=== PATIENT | male | born 1965 | race Caucasian/White ===

== ENCOUNTER 2016-08-02 22:58 | Emergency (ER) | payer MEDICARE, OTHER ==
--- NOTE | ~2016-08-02 | CR72 ---
[facility] A Service of [facility] RADIOLOGY TEXT RESULTS PATIENT: HUGO LEYVA LOCATION: [facility] : 61 UNIT #: [id number] AGE: [address]: Timothy Clifford MD SEX: M ORDER DR: [id number] [address] [address] [id number] E MR#: [id number] Acc #: [id number] NAME: HUGO LEYVA. : 1965 SEX: M STUDY DATE/TIME: 08/02/2016 21:57 UNIT: [facility] ROOM: STUDY DESCRIPTION: CR Chest Single View Portable Attending Physician: Timothy Clifford M.D. Ordering Physician: Timothy Clifford M.D. Primary Care Physician: No Primary Care Physician MEDICAL IMAGING REPORT This report is preliminary unless electronic signature is present EXAM Portable chest. DATE OF EXAM 08/02/2016 INDICATIONS Chest congestion for the past 2 hours. PROCEDURE Frontal view chest. COMPARISON 12/06/2009 FINDINGS Heart size within normal limits. Pulmonary vessels are stable. No dense consolidation. No pleural fluid or pneumothorax. IMPRESSION No active process. Dictated by... Michael Sanchez M.D. THIS IS AN ELECTRONICALLY VERIFIED REPORT Michael Sanchez M.D. at 08/05/2016 7:23 AM CHRISSY/rachel TD: 08/03/2016 21:34 JOB #: [id number] [facility] A Service of [facility] RADIOLOGY TEXT RESULTS PATIENT: HUGO LEYVA LOCATION: [facility] : 61 UNIT #: [id number] AGE: [address]: Timothy Clifford MD SEX: M ORDER DR: MEDICAL IMAGING REPORT COPY
--- NOTE | ~2016-08-02 | EKG ---
PATIENT: HUGO LEYVA UNIT #: [id number] Ventricular Rate: 78 BPM Atrial Rate: 78 BPM P-R Interval: 138 ms QRS Duration: 78 ms Q-T Interval: 354 ms QTC Calculation(Bezet): 403 ms P [place]: 65 degrees Calculated R [place]: 65 degrees Calculated T [place]: 54 degrees Diagnosis Line: Normal sinus rhythm Diagnosis Line: Normal ECG Diagnosis Line: When compared with ECG of 29-MAY-2015 13:16, Diagnosis Line: No significant change was found Diagnosis Line: Confirmed by ANAID MAJANO MD ([id number]) on 08/05/2016 Diagnosis Line: 7:26:09 AM INTERPRETING MD: MELECIO PORTER
--- NOTE | ~2016-08-02 | CT71 ---
[facility] A Service of [facility] RADIOLOGY TEXT RESULTS PATIENT: HUGO LEYVA LOCATION: [facility] : 61 UNIT #: [id number] AGE: [address]: Timothy Clifford MD SEX: M ORDER DR: [id number] [address] [place] [id number] [facility]. [place], [place] [address] [id number] E MR#: [id number] Acc #: [id number] NAME: HUGO LEYVA : 1965 SEX: M STUDY DATE/TIME: 08/02/2016 22:20 UNIT: [facility] ROOM: STUDY DESCRIPTION: CT Head Wo Contrast Attending Physician: Timothy Clifford M.D. Ordering Physician: Timothy Clifford M.D. Primary Care Physician: No Primary Care Physician MEDICAL IMAGING REPORT This report is preliminary unless electronic signature is present EXAM CT head, noncontrast 08/02/2016 HISTORY 51-year-old male in the ED complaining of headache, dizziness, blurred vision and extremity numbness beginning about 2 hours prior to arrival. TECHNIQUE CT examination of the head without IV contrast. This CT exam was performed with one or more of the following radiation dose reduction techniques: automatic control, adjustment of mA and/or kV according to patient size, and iterative reconstruction. FINDINGS No acute intracranial abnormality is identified. No evidence of intracranial hemorrhage, mass, mass effect, cerebral edema, hydrocephalus or additional abnormality. If there is ongoing clinical concern for acute ischemic insult, followup MRI examination of the brain is recommended. IMPRESSION Negative noncontrast head CT examination. Dictated by... Jose J Lance M.D. THIS IS AN ELECTRONICALLY VERIFIED REPORT Jose J Lance M.D. at 08/04/2016 12:04 AM DIANAW/rnr TD: 08/03/2016 22:12 [facility] A Service of [facility] RADIOLOGY TEXT RESULTS PATIENT: HUGO LEYVA LOCATION: [facility] : 61 UNIT #: [id number] AGE: [address]: Timothy Clifford MD SEX: M ORDER DR: JOB #: [id number] MEDICAL IMAGING REPORT COPY
[2016-08-02 21:57] LABS: URINE SOURCE CLEAN CATCH
[2016-08-02 22:06] LABS: URINE APPEARANCE CLEAR; URINE BILIRUBIN NEG (NEG); URINE BLOOD NEG (NEG); URINE COLOR YELLOW; URINE GLUCOSE NEG (NEG); URINE KETONE NEG (NEG); URINE LEUKOCYTE ESTERASE NEG (NEG); URINE NITRATE NEG (NEG); URINE PH 6.5 (5-8); URINE PROTEIN NEG (NEG); URINE SPECIFIC GRAVITY 1.008 (1.003-1.035); URINE UROBILINOGEN 0.2 MG/DL (NEG)
[2016-08-02 22:12] LABS: CULTURE INDICATED? NO
[2016-08-02 22:17] LABS: AMPHETAMINE NEG (NEG); BARBITURATES NEG (NEG); BENZODIAZEPINES NEG (NEG); COCAINE NEG (NEG); MARIJUANA NEG (NEG); OPIATES NEG (NEG); TRICYCLIC ANTIDEPRESSANTS NEG (NEG); U METHADONE NEG (NEG)
[2016-08-02 22:18] LABS: BASOPHIL# 0.1 X10e3 (0-0.3); EOSINOPHIL# 0.3 X10e3 (0-0.7); HEMOGLOBIN 15.4 gm/dL (13.0-16.0); LYMPHOCYTE% 34.2 % (17.0-45.0); MEAN CELL VOLUME 84.2 FL (83-96); MEAN CORPUSCULAR HEMOGLOBIN 28.8 PG (28-34); MEAN CORPUSCULAR HGB CONC 34.2 g/dL (30-36); MEAN PLATELET VOLUME 6.9 FL (6.5-11.5); MONOCYTE# 0.7 X10e3 (0-1.0); MONOCYTE% 5.9 % (3.0-12.0); NEUTROPHIL# 6.6 X10e3 (1.5-7.1); NEUTROPHIL% 55.9 % (40-75); PLATELET COUNT 244 X10e3 (140-420); RED BLOOD COUNT 5.35 X10e (3.90-5.60); RED CELL DISTRIBUTION WIDTH 14.2 % (11.0-15.5); WHITE BLOOD COUNT 11.7 X10e3 (4.0-10.5)
[2016-08-02 22:25] LABS: DIFF IND NO
[2016-08-02 22:35] LABS: PARTIAL THROMBOPLASTIN TIME 30.7 SECONDS (23.5-31.3); PROTHROMBIN TIME (PATIENT) 10.8 SECONDS (9.6-11.5)
[2016-08-02 22:41] LABS: ALBUMIN SERUM 4.2 g/dL (3.5-5.0); ALCOHOL BLOOD <5 mg/dL (0); ALKALINE PHOSPHATASE 50 U/L (32-92); ALT (SGPT) 19 U/L (10-40); AST (SGOT) 24 U/L (10-42); BILIRUBIN, DIRECT 0.1 mg/dL (0.0-0.2); BILIRUBIN,INDIRECT 0.5 mg/dL (0.0-0.9); BILIRUBIN,TOTAL 0.6 mg/dL (0.2-2.0); BLOOD UREA NITROGEN 7 mg/dL (9-23); BUN/CREATININE RATIO 7.77; CALCIUM SERUM 9.3 mg/dL (8.4-10.2); CARBON DIOXIDE 23 mmol/L (22-31); CHLORIDE 94 mmol/L (100-111); CREATININE SERUM 0.9 mg/dL (0.6-1.4); GLOM FILT RATE Estimated ABOVE60 mL/min (>60); GLUCOSE FASTING 93 mg/dL (70-110); MAGNESIUM 1.8 mg/dL (1.6-3.0); POTASSIUM 3.8 mmol/L (3.5-5.1); PROTEIN TOTAL SERUM 7.8 g/dL (6.0-8.3); SODIUM 127 mmol/L (135-145)
[2016-08-02 22:50] LABS: POC - CKMB <1.0 ng/mL (0.0-7.9); POC - TROPONIN <0.05 ng/mL (<=0.05)
[~2016-08-02 22:58] MED LIST: OMEPRAZOLE40 M1 PO; PERCOCET5/325 PO
[2017-01-13] MEDS ORDERED: NO MEDICATIONS (13:44)
== END 2016-08-02 23:48 | disposition home or self-care (01) ==
LOC: CED 22:58
PROVIDERS: Emergency Medicine
DX: R20.2 Paresthesia of skin (principal); E87.1 Hypo-osmolality and hyponatremia; F17.210 Nicotine dependence, cigarettes, uncomplicated; Z86.73 Personal history of transient ischemic attack (TIA), and cerebral infarction without residual deficits; Z90.89 Acquired absence of other organs
CPT/HCPCS: 70450; 71010; 80048; 80076; 80307; 81003; 82553; 82947; 83735; 84484; 85025; 85610; 85730; 93005; 96360; 99284; G0480

== ENCOUNTER → 2017-01-17 | Day surgery (SDC) | payer MEDICARE, OTHER ==
[~2017-01-17] MED LIST changes: +NO MEDICATIONS
--- NOTE | ~2017-01-17 | OR ---
Unit #: [id number] #: [id number] Patient: HUGO LEYVA [id number] [address] [address] [id number] O MR#: [id number] NAME: HUGO LEYVA. ROOM: Date of Procedure: 01/17/2017 Admission Date: 01/17/2017 Surgeon: Jasen Ponce M.D. : 1965 Attending Physician: Jasen Ponce M.D. OPERATIVE REPORT PREOPERATIVE DIAGNOSES 1. Reflux symptoms. 2. Status post right hemicolectomy. 3. Change in bowel habits. POSTOPERATIVE DIAGNOSES 1. Reflux symptoms. 2. Status post right hemicolectomy. 3. Change in bowel habits. PROCEDURES PERFORMED 1. Esophagogastroduodenoscopy. 2. Biopsy of antrum for Helicobacter pylori testing. 3. Colonoscopy to anastomosis (hepatic flexure). ANESTHESIA Monitored anesthesia care. FINDINGS The patient was found to have a lax GE junction, mild distal gastritis, and distal ulcerative esophagitis. Colon was normal to the anastomosis except for mild internal hemorrhoids. SPECIMENS Sent to Pathology. COMPLICATIONS None apparent. CONDITION The patient tolerated the procedure well. INDICATIONS FOR PROCEDURE The patient is a 51-year-old white male, who presents at this time for evaluation of reflux symptoms. He has also had a change in bowel habits. 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 He presents at this time for upper and lower endoscopy. DESCRIPTION OF PROCEDURE After obtaining informed consent, the patient was brought to the endoscopy suite and after adequate monitored anesthesia care, had the endoscope placed through the mouth into the upper esophagus under direct vision. It Unit #: [id number] #: [id number] Patient: HUGO LEYVA was advanced to the second portion of the duodenum without difficulty with the lumen always in view. The duodenum was normal as was the duodenal bulb. The pylorus opened normally. There was some mild distal gastritis present, and a biopsy was obtained for Helicobacter pylori testing. On retroflexing back to the GE junction, the patient was found to have a lax GE junction, but no abnormalities were found in the proximal third, middle third, or incisura. On pulling back above the GE junction, there was no stenosis, stricture, or neoplasm seen, but there was some distal ulcerative esophagitis. The remaining portion of the esophagus was within normal limits. Laryngeal structures were grossly normal as viewed from above. At this point in time, the colonoscope was placed through the anus and slowly advanced to the level of the anastomosis in the area of the hepatic flexure without difficulty with the lumen always in view. The anastomosis was normal and had no evidence of recurrence. The transverse colon was normal as was the splenic flexure, descending colon, sigmoid colon, and rectum. On retroflexing in the rectum to the anorectal junction, the patient was found to have some mild internal hemorrhoids. The scope was removed without difficulty. The patient tolerated the procedure well and went from the endoscopy suite to recovery area in stable condition. RECOMMENDATIONS High-fiber diet, lots of liquids, tucks or wipes p.r.n. Gastroesophageal reflux sheet given. Prescription given for Protonix 1 p.o. daily. Dictated by... Pancho Knutson/roldan TD: 01/18/2017 03:16 JOB #: [id number] CC: [facility] OPERATIVE REPORT Page 1 of 1 X Jasen Ponce MD X PROCEDURE OPERATIVE NOTE
== END | disposition home or self-care (01) ==
LOC: COPS 05:48
DX: K22.10 Ulcer of esophagus without bleeding (principal); K29.70 Gastritis, unspecified, without bleeding; K21.9 Gastro-esophageal reflux disease without esophagitis; K64.8 Other hemorrhoids; J44.9 Chronic obstructive pulmonary disease, unspecified; M06.9 Rheumatoid arthritis, unspecified; M19.90 Unspecified osteoarthritis, unspecified site; G47.30 Sleep apnea, unspecified; F17.210 Nicotine dependence, cigarettes, uncomplicated; Z85.038 Personal history of other malignant neoplasm of large intestine; Z86.73 Personal history of transient ischemic attack (TIA), and cerebral infarction without residual deficits; Z87.01 Personal history of pneumonia (recurrent); Z90.49 Acquired absence of other specified parts of digestive tract
CPT/HCPCS: 43239; G0105; 87077; J2250